=== PATIENT | female | born 1990 | race Caucasian/White ===

== ENCOUNTER 2017-12-19 11:07 | Emergency (ER) | payer SELFPAY ==
[2017-12-19 11:13] VITALS: BP 109/61; PULSE 79; TEMP 98.3; BMI 21.9
--- NOTE | 2017-12-19 12:28 | PDOC ---
History of Present Illness - General Chief Complaint: Headache Stated Complaint: HEADACHE, VOMITING Time Seen by Provider: 12/19/17 12:27 History Source: Patient Exam Limitations: No Limitations - History of Present Illness Initial Comments: CHIEF COMPLAINT: 27 y/o afebrile female c/o headache, stuffy nose and runny nose x 5 days. HISTORY OF PRESENT ILLNESS: The patient states she took tylenol once with little relief. She denies changes in vision/hearing, fever, chills, earache, sore throat, n/v/d, CP, SOB, abd pain, body aches. She has no PCP. Past History - Past Medical History Allergies/Adverse Reactions: Allergies Allergy/AdvReac Type Severity Reaction Status Date / Time No Known Allergies Allergy Verified 12/19/17 11:13 Home Medications: Ambulatory Orders NK [No Known Home Medication] 12/19/17 COPD: No - Suicide/Smoking/Psychosocial Hx Smoking History: Never smoked Hx Alcohol Use: No Drug/Substance Use Hx: No Review of Systems - Review of Systems Able to Perform ROS?: Yes Comments:: patient's significant other provided yakut translation Is the patient limited Yakut proficient: No Constitutional: No: Chills, Fever HEENTM: Yes: Nose Congestion. No: Eye Pain, Blurred Vision, Recent change in vision, Double Vision, Ear Pain, Ear Discharge, Nose Pain, Throat Pain, Throat Swelling, Difficulty Swallowing Respiratory: No: Symptoms reported Cardiac (ROS): No: Symptoms Reported ABD/GI: No: Symptoms Reported Neurological: Yes: Headache. No: Numbness, Paresthesia, Tingling, Unsteady Gait *Physical Exam - Vital Signs Last Vital Signs Temp Pulse Resp BP Pulse Ox 98.3 F 79 18 109/61 100 12/19/17 11:10 12/19/17 11:10 12/19/17 11:10 12/19/17 11:10 12/19/17 11:10 - Physical Exam Comments: A/P: well appearing ambulatory female in NAD or obvious discomfort. General Appearance: Yes: Nourished, Appropriately Dressed. No: Apparent Distress HEENT: positive: EOMI (no pain with EOMs), SAMIRA, Pharynx Normal, Nasal Congestion, Rhinorrhea, Sinus Tenderness. negative: Photophobia, Muffled/ Hoarse voice, Pharyngeal Erythema, Tonsillar Exudate, Tonsillar Erythema Respiratory/Chest: positive: Lungs Clear, Normal Breath Sounds. 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 negative: Sensory Deficit, Confused Medical Decision Making - Medical Decision Making A/P: 27 y/o afebrile female with headache, cough and nasal congestion x 5 days. The patient has sinusitis. Plan is as follows: 1. hcg 2. IM toradol 3. PO claritin hcg - negative The patient states she feels better after medication. Will discharge to home. Suggested she take PO motrin and claritin for symptoms , drink plenty of fluids and return to the ER with any worsening or concernign symptoms. Also provided referral to Dr. Thompson for PCP evaluation. The patient verbalizes understanding of all instructions, has no further questions and is awaiting discharge. *DC/Admit/Observation/Transfer Diagnosis at time of Disposition: Sinusitis Qualifiers: Sinusitis location: frontal Chronicity: acute Recurrence: non-recurrent Qualified Code(s): J01.10 - Acute frontal sinusitis, unspecified - Discharge Dispostion Disposition: HOME Condition at time of disposition: Improved - Referrals Referrals: Aime Thompson MD [Staff Physician] - - Patient Instructions Printed Discharge Instructions: DI for Sinusitis Additional Instructions: Discharge Instructions: -You have sinusitis -The treatment for this is over the counter medications -Take 600mg of over the counter Motrin every 6 hours with food -Take 10mg of over the counter claritin once daily -Drink at least 64oz of water daily -Follow up with Dr. Thompson within 1 week -Return to the ER with any worsening or concerning symptoms Instrucciones de descarga: -Tienes sinusitis -El tratamiento para esto es sobre los medicamentos de venta veronica -[place] 600 mg de venta veronica de Motrin cada 6 horas con comida - [place] 10 mg de henny clarificacin diaria sin receta -[place] al menos 64 onzas de agua al da -Siga con el Dr. Thompson dentro de 1 semana -Volver a la annie de urgencias con cualquier empeoramiento o sntomas Print Language: ENGLISH - Post Discharge Activity
[2017-12-19] MEDS ORDERED: KETOROLAC TROMETHAMINE 60 MG/2 ML VIAL IM ONE (12:56)
[2017-12-19] MEDS ORDERED: LORATADINE 10 MG TABLET PO ONE (12:56)
[2017-12-19] MEDS ORDERED: KETOROLAC TROMETHAMINE 60 MG/2 ML VIAL ONE (12:57)
[2017-12-19] MEDS ORDERED: LORATADINE 10 MG TABLET ONE (12:58)
== END 2017-12-19 13:35 | disposition home or self-care (01) ==
LOC: JERFT 11:07
PROC: 3E0233Z Introduction of Anti-inflammatory into Muscle, Percutaneous Approach (ICD-10-PCS; principal; 2017-12-19)
DX: J01.10 Acute frontal sinusitis, unspecified (principal)
CPT/HCPCS: 84703; 99281-25